=== PATIENT | male | born 1985 | race Caucasian/White ===

== ENCOUNTER 2016-04-23 20:02 | Emergency (ER) | payer SELFPAY ==
[2016-04-23 20:16] VITALS: BP 136/64
[2016-04-23] MEDS ORDERED: DIPHTH,PERTUSS(ACELL),TET VAC 0.5 ML VIAL IM ONE ×3 (20:35→20:53)
[2016-04-23] MEDS ORDERED: SULFAMETHOXAZOLE/TRIMETHOPRIM 1 TAB TABLET PO ONE (20:35)
[2016-04-23] MEDS ORDERED: ACETAMINOPHEN 500 MG TABLET PO ONE (20:43)
[2016-04-23] MEDS ORDERED: SULFAMETHOXAZOLE/TRIMETHOPRIM 1 TAB TABLET ONE (20:47)
--- NOTE | 2016-04-23 20:48 | ERNOTE ---
Lower Extremity HPI - Narrative Date of Service: 04/23/16 - General Lower Extremities Pain: leg: left Time Seen by Provider: 04/23/16 20:23 Source: patient Exam Limitations: no limitations - Immun/Allergies/Home Medications Immunizations: IMMUNIZATION HX Immunizations Up to Date No History of Influenza Vaccine No Hx Pneumococcal Vaccination No Allergies/Adverse Reactions: Allergies Allergy/AdvReac Type Severity Reaction Status Date / Time No Known Drug Allergies Allergy Verified 04/23/16 20:16 Home Medications: HOME MEDICATIONS Ibuprofen [Motrin] 800 mg PO PRN PRN 04/23/16 [Last Taken 04/22/16] Melatonin 25 mg PO HS 04/23/16 [Last Taken 04/22/16] Sulfamethoxazole/Trimethoprim [Bactrim Ds] 1 tab PO BID #14 tab 04/23/16 [Last Taken Unknown] - History of Present Illness Narrative: Silas hit his knee on a hitch four days ago and notices that there has been progressive pain and redness at the leg since the injury. He has been bearing weight on the leg. No reported fevers or chills. No drainage of pus. He is able to flex and extend, however it is uncomfortable. There is a history of alcohol abuse and anxiety. Occurred: other - four days Location of Incident: home Method of Injury: Reports: direct blow Modifying Factors - (Improves): Reports: other - being still Modifying Factors - (Worsens): Reports: movement Associated Symptoms: Reports: none Other Injuries: Reports: none Review of Systems - Review of Systems Constitutional: Present: no symptoms reported EYE: Present: no symptoms reported ENT: Present: no symptoms reported Respiratory: Present: no symptoms reported Cardiology: Present: no symptoms reported Gastrointestinal/Abdominal: Present: no symptoms reported Genitourinary: Present: no symptoms reported Musculoskeletal: Present: no symptoms reported Skin: Present: See HPI Neurological: Present: anxiety Endocrine: Present: no symptoms reported Hematologic/Lymphatic: Present: no symptoms reported Psych: Present: no symptoms reported - Patient's Past Medical History Patient History - Medical: Anxiety, Depression Patient History - Cardiac/Respiratory: No pertinent hx Patient History - Cancer: No Hx of Cancer Patient History - Surgical Procedures: No surgical history Patient History - Other: None - Social History Living Situations: home Psych History: Hx of Anxiety, Hx of Depression Smoking Status: Current every day smoker Alcohol Use: heavy Drug Use: none - Immunizations Immunizations Up to Date: No Hx Pneumococcal Vaccination: No History of Influenza Vaccine: No Physical Exam - Physical Exam Narrative: Not in any distress. General Appearance: Present: no apparent distress Eye Exam: Normal inspection: bilateral Ears, Nose, Throat: Present: normal ENT inspection Neck: Present: normal inspection Respiratory: Present: no respiratory distress Cardiovascular/Chest: Present: regular rate, rhythm Gastrointestinal/Abdominal: Present: nondistended Back Exam: Present: normal inspection Extremity Exam: Present: other - left leg- Eythema is preseny at the distal thigh/knee and proximal leg. No significant effusion at the knee. Able to extend to 10 degrees and flex to 90. No fluctuance at the knee. He is able to bear weight on the leg. Neurological Exam: Present: alert, oriented, oil burner II-XII nml as tested Skin Exam: Present: normal color ED Progress - Vital Signs Patient's Vital Signs:: I have reviewed the patient's vital signs. Vital Signs: Vital Signs 04/23/16 20:11 Temperature 35.9 C L Pulse Rate 87 Respiratory 18 Rate Blood Pressure 136/64 O2 Sat by Pulse 99 Oximetry - Progress/Reassessment Chief Complaint: Lower Extremity Pain/ Injury Progress:: Unchanged Progress Note-Subjective: 04/23/16 20:43 The patient refused to have an x-ray done since he was concerned about the cost. 04/24/16 05:03 Started on Bactrim DS. Departure Clinical Impression: Cellulitis of left leg - Departure Disposition: Home self-care Condition: Good Instructions: Cellulitis, Adult, [id number] [employer] Language: Danish Additional Instructions: Keep the left leg elevated. Ice packs to the leg for pain relief. If you feel sick or the pain increases return to the ED. Follow up with ortho in 2 days if you do not feel better. Referrals: Siddharth Wynne, PAC [[facility]] - Prescriptions: Sulfamethoxazole/Trimethoprim [Bactrim Ds] 1 tab PO BID #14 tab
== END 2016-04-23 21:01 | disposition home or self-care (01) ==
LOC: ER 20:02
DX: L03.116 Cellulitis of left lower limb (principal); Z23 Encounter for immunization; F17.210 Nicotine dependence, cigarettes, uncomplicated